=== PATIENT | male | born 2000 | race Caucasian/White ===

== ENCOUNTER 2022-07-28 12:25 | Emergency (ER) | payer SELFPAY ==
--- NOTE | 2022-07-28 13:17 | ER ---
Nurse's Notes [facility] Name: Will Rodarte Age: 21 yrs Sex: Male : 2000 Arrival Date: 07/28/2022 Time: 12:29 Bed 10 Private MD: Diagnosis: Dental caries, unspecified;Dental root caries Presentation: 07/28 12:36 Chief complaint: Patient states: right lower wisdom tooth has been hurting him X 2 iw days. Risk Assessment: Do you want to hurt yourself or someone else? Patient reports no desire to harm self or others. 12:36 Method Of Arrival: Ambulatory iw 12:36 Acuity: ANIA 4 iw Historical: - Allergies: 12:37 No Known Allergies; iw - Home Meds: 12:37 None [Active]; iw - PMHx: 12:37 None; iw - PSHx: 12:37 knee; iw - Immunization history:: Adult Immunizations not up to date. - Social history:: Smoking status: Reported history of juuling and/or vaping. - Family history:: not pertinent. Vital Signs: 12:37 BP 127 / 76; Pulse 89; Resp 16; Temp 98.0; Pulse Ox 100% ; Weight 95.25 kg; Height 5 iw ft. 11 in. (180.34 cm); Pain 10/10; 12:37 Body Mass Index 29.29 (95.25 kg, 180.34 cm) iw ED Course: 12:29 Patient arrived in ED. [id number] 12:36 Florentino France MD is Attending Physician. teresa 12:37 Triage completed. iw 12:38 Arm band placed on. iw 13:16 Eugenio Cook DDS is Referral Physician. teresa 13:18 Vania Lawson, RN is Primary Nurse. iw Administered Medications: 13:28 Drug: Ketorolac 60 mg Route: IM; Site: left gluteus; iw 13:28 Drug: Amoxicillin 500 mg Route: PO; iw Outcome: 13:16 Discharge ordered by . teresa 13:34 Patient left the ED. iw Signatures: Florentino France MD MD cha Williams, Irene, RN RN iw Marisela Brooks rg4
--- NOTE | 2022-07-28 13:17 | EDPHYS ---
Physician Documentation [facility] Name: Will Rodarte Age: 21 yrs Sex: Male : 2000 Arrival Date: 07/28/2022 Time: 12:29 Bed 10 Private MD: SEBASTIAN Physician Florentino France HPI: 07/28 13:10 This 21 yrs old Male presents to ER via Ambulatory with complaints of [facility] Toothache. 13:10 The patient presents with pain, redness, swelling. The problem is located in the lower teresa right third molar. Onset: The symptoms/episode began/occurred 2 day(s) ago. Duration: The symptoms are continuous, and are steadily getting worse. Modifying factors: The symptoms are alleviated by nothing, the symptoms are aggravated by chewing. Associated signs and symptoms: Pertinent positives: pain. Severity of symptoms: At their worst the symptoms were moderate, in the emergency department the symptoms are unchanged. The patient has experienced similar episodes in the past, a few times. Historical: - Allergies: 12:37 No Known Allergies; iw - Home Meds: 12:37 None [Active]; iw - PMHx: 12:37 None; iw - PSHx: 12:37 knee; iw - Immunization history:: Adult Immunizations not up to date. - Social history:: Smoking status: Reported history of juuling and/or vaping. - Family history:: not pertinent. ROS: 13:10 Constitutional: Negative for fever, chills, and weight loss, Eyes: Negative for injury, teresa pain, redness, and discharge, Neck: Negative for injury, pain, and swelling, Cardiovascular: Negative for chest pain, palpitations, and edema, Respiratory: Negative for shortness of breath, cough, wheezing, and pleuritic chest pain, Abdomen/GI: Negative for abdominal pain, nausea, vomiting, diarrhea, and constipation, Back: Negative for injury and pain, : Negative for injury, bleeding, discharge, and swelling, MS/Extremity: Negative for injury and deformity, Skin: Negative for injury, rash, and discoloration, Neuro: Negative for headache, weakness, numbness, tingling, and seizure, Psych: Negative for depression, anxiety, suicide ideation, homicidal ideation, and hallucinations, Allergy/Immunology: Negative for hives, rash, and allergies, Endocrine: Negative for neck swelling, polydipsia, polyuria, polyphagia, and marked weight changes, Hematologic/Lymphatic: Negative for swollen nodes, abnormal bleeding, and unusual bruising. 13:10 ENT: Positive for dental pain. Exam: 13:10 Constitutional: This is a well developed, well nourished patient who is awake, alert, teresa and in no acute distress. Head/Face: Normocephalic, atraumatic. Eyes: Pupils equal round and reactive to light, extra-ocular motions intact. Lids and lashes normal. Conjunctiva and sclera are non-icteric and not injected. Cornea within normal limits. Periorbital areas with no swelling, redness, or edema. Neck: Trachea midline, no thyromegaly or masses palpated, and no cervical lymphadenopathy. Supple, full range of motion without nuchal rigidity, or vertebral point tenderness. No Meningismus. Chest/axilla: Normal chest wall appearance and motion. Nontender with no deformity. No lesions are appreciated. Cardiovascular: Regular rate and rhythm with a normal S1 and S2. No gallops, murmurs, or rubs. Normal PMI, no JVD. No pulse deficits. Respiratory: Lungs have equal breath sounds bilaterally, clear to auscultation and percussion. No rales, rhonchi or wheezes noted. No increased work of breathing, no retractions or nasal flaring. Abdomen/GI: Soft, non-tender, with normal bowel sounds. No distension or tympany. No guarding or rebound. No evidence of tenderness throughout. Back: No spinal tenderness. No costovertebral tenderness. Full range of motion. Skin: Warm, dry with normal turgor. Normal color with no rashes, no lesions, and no evidence of cellulitis. MS/ Extremity: Pulses equal, no cyanosis. Neurovascular intact. Full, normal range of motion. Neuro: Awake and alert, GCS 15, oriented to person, place, time, and situation. Cranial nerves II-XII grossly intact. Motor strength 5/5 in all extremities. Sensory grossly intact. Cerebellar exam normal. Normal gait. Psych: Awake, alert, with orientation to person, place and time. Behavior, mood, and affect are within normal limits. 13:10 ENT: Mouth: Lips: normal, Oral mucosa: normal, Gums: normal with healthy appearance, Posterior pharynx: is normal, no acute changes. Vital Signs: 12:37 BP 127 / 76; Pulse 89; Resp 16; Temp 98.0; Pulse Ox 100% ; Weight 95.25 kg; Height 5 iw ft. 11 in. (180.34 cm); Pain 10/10; 12:37 Body Mass Index 29.29 (95.25 kg, 180.34 cm) iw MDM: 12:36 Patient medically screened. teresa 13:13 Differential diagnosis: dental caries, gingivitis, dental abscess, acute necrotizing teresa ulcerative gingivitis, gingivostomatitis. Data reviewed: vital signs, nurses notes. Consideration of Admission/Observation Patient was admitted/placed on observation. Escalation of care including admission/observation considered. I considered the following discharge prescriptions or medication management in the emergency department Medications were administered in the Emergency Department. See MAR. Test considered but Not performed: Other Details ct or panorex. 13:14 ED course: brush and broom clipper reviewed, no hx seen. teresa Administered Medications: 13:28 Drug: Ketorolac 60 mg Route: IM; Site: left gluteus; iw 13:28 Drug: Amoxicillin 500 mg Route: PO; iw Disposition Summary: 07/28/22 13:16 Discharge Ordered Location: Home teresa Problem: new teresa Symptoms: have improved teresa Condition: Stable teresa Diagnosis - Dental caries, unspecified teresa - Dental root caries teresa Followup: teresa - With: Private Physician - When: 2 - 3 days - Reason: Recheck today's complaints, Continuance of care, Re-evaluation by your physician Followup: teresa - With: Eugenio Cook DDS - When: 2 - 3 days - Reason: Recheck today's complaints, Continuance of care, Re-evaluation by your physician Discharge Instructions: - Discharge Summary Sheet teresa - Dental Caries, Adult teresa - Dental Pain teresa - Dental Pain, [id number] teresa - Diet and Dental Disease teresa Forms: - Medication Reconciliation Form teresa - Thank You Letter teresa - Antibiotic Education teresa - Prescription Opioid Use teresa - Work release form iw Prescriptions: - Amoxicillin 500 mg Oral Capsule - take 1 capsule by ORAL route every 8 hours for 10 days; 30 tablet; Refills: 0, teresa Product Selection Permitted - Ibuprofen 600 mg Oral Tablet - take 1 tablet by ORAL route every 6 hours As needed take with food; 20 tablet; teresa Refills: 0, Product Selection Permitted - Tylenol-Codeine #3 300 mg-30 mg Oral - take 2 tablet by ORAL route every 6 hours; 20 tablet; Refills: 0, Product teresa Selection Permitted Signatures: Florentino France MD MD cha Williams, Irene, RN RN iw
[2022-07-28] MEDS ORDERED: KETOROLAC 30 MG/ML INJ ONE (13:21)
[2022-07-28] MEDS ORDERED: AMOXICILLIN TRIHYDR 250 MG CAP ONE (13:21)
[2022-07-28 14:03] VITALS: BP 127/76; TEMP 98; O2SAT 100
== END 2022-07-28 13:34 | disposition home or self-care (01) ==
LOC: ER 12:25
DX: K02.7 Dental root caries (principal); K02.9 Dental caries, unspecified
CPT/HCPCS: 96372; 99282